=== PATIENT | female | born 1990 | race Caucasian/White ===

== ENCOUNTER 2018-05-11 07:43 | Inpatient (IN) | payer OTHER ==
[~2018-05-11] VITALS: Ht 152.4 cm; Wt 81.0 kg
[~2018-05-11 07:43] MED LIST: ACYC400 PO; ACYC800 PO; ACYCLOVIR PO; AMOCLA500 PO; AMOX875 PO; BCP; BCP'S; CEPH500 PO; CODGUAEL PO; IBUP600 PO; IBUP800 PO; LIDO2L MM; ONDA4ODT MM; SULTRIDS PO; TRAM50 PO; Veetids 500500 MG PO; [UNRECOGNIZED DRUG - REMARK]
[2018-05-11 08:28] LABS: BASOPHILS ABSOLUTE AUTO 0.05 K/mm3 (0.00-0.23); BASOPHILS PERCENT AUTO 0 % (0-2); EOSINOPHILS ABSOLUTE AUTO 0.07 K/mm3 (0.00-0.68); EOSINOPHILS PERCENT AUTO 1 % (0-6); Hematocrit 34.3 % (33.0-51.0); Hemoglobin 11.3 g/dL (11.5-16.0); IMMATURE GRAN ABSOLUTE AUTO 0.12 K/mm3 (0.00-0.10); IMMATURE GRAN PERCENT AUTO 1 % (0-1); LYMPHOCYTES ABSOLUTE AUTO 3.16 K/mm3 (0.84-5.20); LYMPHOCYTES PERCENT AUTO 22 % (21-46); MONOCYTES ABSOLUTE AUTO 1.02 K/mm3 (0.16-1.47); MONOCYTES PERCENT AUTO 7 % (4-13); Mean Corpuscular HGB 27.2 pg (26.0-34.0); Mean Corpuscular HGB Conc 32.9 g/dL (31.5-36.5); Mean Corpuscular Volume 83 fL (80-100); Mean Platelet Volume 10.8 fL (9.1-12.4); NEUTROPHILS ABSOLUTE AUTO 9.81 K/mm3 (1.96-9.15); NEUTROPHILS PERCENT AUTO 69 % (41-73); Platelet Count 269 K/mm3 (150-400); RDW Coefficient Variation 14.2 % (11.7-14.2); RDW Standard Deviation 42.1 fL (35.1-46.3); Red Blood Cell Count 4.15 M/mm3 (3.80-5.20); White Blood Cell Count 14.23 K/mm3 (4.00-11.30)
[2018-05-12 05:53] LABS: Hemoglobin 10.1 g/dL (11.5-16.0); Mean Corpuscular HGB 26.9 pg (26.0-34.0); Mean Corpuscular HGB Conc 32.6 g/dL (31.5-36.5); Mean Corpuscular Volume 83 fL (80-100); Mean Platelet Volume 9.9 fL (9.1-12.4); Platelet Count 243 K/mm3 (150-400); RDW Coefficient Variation 14.3 % (11.7-14.2); RDW Standard Deviation 42.5 fL (35.1-46.3); Red Blood Cell Count 3.75 M/mm3 (3.80-5.20); White Blood Cell Count 18.25 K/mm3 (4.00-11.30)
[2018-05-12] MEDS ORDERED: Percocet 5-3251 EACH PO (14:07)
[2018-05-12] MEDS ORDERED: IBUP800 PO (14:07)
== END 2018-05-12 16:42 | disposition home or self-care (01) | DRG 807 ==
LOC: OBS 07:43 → BC 07:46 → OBS 07:53 → BC 07:54
PROVIDERS: Nurse Practitioner Obstetrics & Gynecology
PROC: 10E0XZZ Delivery of Products of Conception, External Approach (ICD-10-PCS; principal; 2018-05-11)
PROC: 0HQ9XZZ Repair Perineum Skin, External Approach (ICD-10-PCS; 2018-05-11)
PROC: 3E0R3BZ Introduction of Anesthetic Agent into Spinal Canal, Percutaneous Approach (ICD-10-PCS; 2018-05-11)
PROC: 3E0234Z Introduction of Serum, Toxoid and Vaccine into Muscle, Percutaneous Approach (ICD-10-PCS; 2018-05-12)
DX: O70.0 First degree perineal laceration during delivery (principal); Z37.0 Single live birth; Z3A.40 40 weeks gestation of pregnancy; Z23 Encounter for immunization
CPT/HCPCS: 36415; 85025; 85027; 90686; J1885; J2001; J2210; J2405; J2590; J3010; J7120

== ENCOUNTER 2018-05-31 11:07 | Day surgery (SDC) | payer OTHER ==
[2018-05-30 16:30] LABS: Hematocrit 37.5 % (33.0-51.0); Mean Corpuscular HGB 27.2 pg (26.0-34.0); Mean Corpuscular Volume 85 fL (80-100); Mean Platelet Volume 10.2 fL (9.1-12.4); Platelet Count 335 K/mm3 (150-400); RDW Coefficient Variation 14.3 % (11.7-14.2); RDW Standard Deviation 44.9 fL (35.1-46.3); Red Blood Cell Count 4.41 M/mm3 (3.80-5.20); White Blood Cell Count 7.48 K/mm3 (4.00-11.30)
[~2018-05-31 11:07] MED LIST changes: +Percocet 5-3251 EACH PO
--- NOTE | 2018-05-31 11:51 | NUR ---
1120 Ambulatory in Day Surgery History, Chart, Medications and Allergies reviewed before start of procedure.Lungs clear T/O to Auscultation. Patient confirms NPO status and agrees with scheduled surgery. Pre-Op teaching done. Pt verbalizes understanding.
--- NOTE | 2018-05-31 13:04 | NUR ---
[facility]18 [facility] BY DR PERSON AT 1250.
--- NOTE | 2018-05-31 15:24 | NUR ---
PATIENT HAMZAH PAD CHECKED WITH KACIE KOCH ON TRANSFER. MODERATE AMOUNT OF S/S DRAINAGE ON HAMZAH PAD. Discharge instructions reviewed with patient. Patient verbalizes understanding. Copy given to patient to take home. Patient States Post-Procedure ride home has been arranged. Discharged via wheelchair to private car for ride home. HAMZAH PAD CHANGED BY PATIENT BEFORE GOING HOME. NO FURTHER BLEEDING.
== END 2018-05-31 15:24 | disposition home or self-care (01) ==
LOC: ORSCMMR 11:07 → SURS 11:07 → ORD 11:07 → SURS 11:10 → ORD 15:24
PROVIDERS: Obstetrics & Gynecology
PROC: 10D07Z8 Extraction of Products of Conception, Other, Via Natural or Artificial Opening (ICD-10-PCS; principal; 2018-05-31 12:00)
DX: O72.2 Delayed and secondary postpartum hemorrhage (principal); N71.1 Chronic inflammatory disease of uterus
CPT/HCPCS: 36415; 84702; 85027; 86850; 86900; 86901; 88305; J0690; J1100; J1885; J2210; J2250; J2405; J3010; J7120

== ENCOUNTER 2021-09-20 15:32 | Day surgery (SDC) | payer OTHER ==
[~2021-09-20] VITALS: Ht 144.8 cm; Wt 83.1 kg
--- NOTE | 2021-09-20 16:13 | NUR ---
History, Chart, Medications and Allergies reviewed before start of procedure. Lungs clear T/O to Auscultation. Patient confirms NPO status and agrees with scheduled surgery. Pre-Op teaching done. Pt verbalizes understanding. Patient States Post-Procedure ride home has been arranged.
[2021-09-20 16:47] LABS: BASOPHILS ABSOLUTE AUTO 0.03 K/mm3 (0.00-0.23); BASOPHILS PERCENT AUTO 0 % (0-2); EOSINOPHILS PERCENT AUTO 1 % (0-6); Hematocrit 36.7 % (33.0-51.0); Hemoglobin 12.3 g/dL (11.5-16.0); IMMATURE GRAN ABSOLUTE AUTO 0.01 K/mm3 (0.00-0.10); IMMATURE GRAN PERCENT AUTO 0 % (0-1); LYMPHOCYTES ABSOLUTE AUTO 2.16 K/mm3 (0.84-5.20); LYMPHOCYTES PERCENT AUTO 25 % (21-46); MONOCYTES ABSOLUTE AUTO 0.66 K/mm3 (0.16-1.47); MONOCYTES PERCENT AUTO 8 % (4-13); Mean Corpuscular HGB 28.7 pg (26.0-34.0); Mean Corpuscular HGB Conc 33.5 g/dL (31.5-36.5); Mean Corpuscular Volume 86 fL (80-100); Mean Platelet Volume 10.1 fL (9.1-12.4); NEUTROPHILS ABSOLUTE AUTO 5.85 K/mm3 (1.96-9.15); NEUTROPHILS PERCENT AUTO 67 % (41-73); Platelet Count 274 K/mm3 (150-400); RDW Coefficient Variation 12.6 % (11.7-14.2); RDW Standard Deviation 39.1 fL (35.1-46.3); Red Blood Cell Count 4.29 M/mm3 (3.80-5.20); White Blood Cell Count 8.81 K/mm3 (4.00-11.30)
--- NOTE | 2021-09-21 07:03 | NUR ---
LATE ENTRY, PT WAS GIVEN PO FOOD AND FLUIDS TO EAT PRIOR TO PAIN MEDICATIONS GIVEN. PT TOLERATED WELL. IV DC'D INTACT. PT WITH SCANT VAGINAL BLEEDING A THIS TIME. PERIPAD PROVIDED. REVIEWED DISCHARGE INSTRUCTIONS WITH PT. PT RX WAS GIVEN TO HER PRIOR TO PT GOING TO SURGERY BY DR. CHEN. PT HOME WITH HER AND DISCHARGED VIA WHEELCHAIR. NO ACUTE DISTRESS AT THIS TIME.
== END 2021-09-20 23:29 | disposition home or self-care (01) ==
LOC: ORD 15:32
PROVIDERS: Obstetrics & Gynecology
PROC: 10A07ZZ Abortion of Products of Conception, Via Natural or Artificial Opening (ICD-10-PCS; principal; 2021-09-20 15:30)
DX: O03.4 Incomplete spontaneous abortion without complication (principal); J45.909 Unspecified asthma, uncomplicated
CPT/HCPCS: 85025; A9270; J0690

== ENCOUNTER 2022-08-21 20:04 | Inpatient (IN) | payer OTHER ==
[~2022-08-21] VITALS: Ht 152.4 cm; Wt 84.1 kg
[2022-08-21] MEDS ORDERED: PRENATAL TABLE1 EAC2 PO (20:33)
[2022-08-21] MEDS ORDERED: LABE100 PO (20:33)
[2022-08-21] MEDS ORDERED: ACYC400 PO (20:33)
[2022-08-21 20:34] LABS: BASOPHILS ABSOLUTE AUTO 0.04 K/mm3 (0.00-0.23); BASOPHILS PERCENT AUTO 0 % (0-2); EOSINOPHILS ABSOLUTE AUTO 0.04 K/mm3 (0.00-0.68); EOSINOPHILS PERCENT AUTO 0 % (0-6); Hematocrit 31.2 % (33.0-51.0); Hemoglobin 10.5 g/dL (11.5-16.0); IMMATURE GRAN ABSOLUTE AUTO 0.09 K/mm3 (0.00-0.10); IMMATURE GRAN PERCENT AUTO 1 % (0-1); LYMPHOCYTES ABSOLUTE AUTO 2.21 K/mm3 (0.84-5.20); LYMPHOCYTES PERCENT AUTO 20 % (21-46); MONOCYTES ABSOLUTE AUTO 0.89 K/mm3 (0.16-1.47); MONOCYTES PERCENT AUTO 8 % (4-13); Mean Corpuscular HGB 27.8 pg (26.0-34.0); Mean Corpuscular HGB Conc 33.7 g/dL (31.5-36.5); Mean Corpuscular Volume 83 fL (80-100); Mean Platelet Volume 9.5 fL (9.1-12.4); NEUTROPHILS ABSOLUTE AUTO 7.63 K/mm3 (1.96-9.15); NEUTROPHILS PERCENT AUTO 70 % (41-73); Platelet Count 290 K/mm3 (150-400); RDW Standard Deviation 41.9 fL (35.1-46.3); Red Blood Cell Count 3.78 M/mm3 (3.80-5.20)
--- NOTE | 2022-08-22 15:30 | NUR ---
AFTER REPEATEDLY REMOVING BP CUFF, PT DECLINING FURTHER BP CHECKS AT THIS TIME SHE BELIVES IT IS INTERFERING WITH .
[2022-08-23 07:46] LABS: Hematocrit 28.4 % (33.0-51.0); Hemoglobin 9.7 g/dL (11.5-16.0); Mean Corpuscular HGB 28.1 pg (26.0-34.0); Mean Corpuscular HGB Conc 34.2 g/dL (31.5-36.5); Mean Corpuscular Volume 82 fL (80-100); Mean Platelet Volume 9.6 fL (9.1-12.4); Platelet Count 223 K/mm3 (150-400); RDW Coefficient Variation 14.1 % (11.7-14.2); RDW Standard Deviation 41.6 fL (35.1-46.3); Red Blood Cell Count 3.45 M/mm3 (3.80-5.20); White Blood Cell Count 13.07 K/mm3 (4.00-11.30)
[2022-08-23] MEDS ORDERED: IBUP800 PO (14:12)
[2022-08-23] MEDS ORDERED: ACET500 PO (14:12)
--- NOTE | 2022-08-23 14:25 | NUR ---
DISCHARGE MOTHER CARING FOR SELF AND BABY INDEPENDANTLY. VSS. AFEBRILE. VERBALIZES UNDERSTANDING OF DC INSTRUCTIONS AND FOLLOW UP APPOINTMENTS. LOCHIA SCANT. DC HOME STABLE.
== END 2022-08-23 15:00 | disposition home or self-care (01) | DRG 807 ==
LOC: OBS 20:04 → BC 20:11
PROVIDERS: ADMIT Nurse Practitioner Obstetrics & Gynecology
PROC: 10E0XZZ Delivery of Products of Conception, External Approach (ICD-10-PCS; principal; 2022-08-22)
PROC: 3E0R3BZ Introduction of Anesthetic Agent into Spinal Canal, Percutaneous Approach (ICD-10-PCS; 2022-08-22)
PROC: 00HU33Z Insertion of Infusion Device into Spinal Canal, Percutaneous Approach (ICD-10-PCS; 2022-08-22)
PROC: 10907ZC Drainage of Amniotic Fluid, Therapeutic from Products of Conception, Via Natural or Artificial Opening (ICD-10-PCS; 2022-08-22)
DX: O10.92 Unspecified pre-existing hypertension complicating childbirth (principal); Z37.0 Single live birth; Z3A.38 38 weeks gestation of pregnancy
CPT/HCPCS: 36415; 51702; 85025; 85027; 86850; 86900; 86901; 86923; A9270; J1885; J2210; J2590; J7120

== ENCOUNTER 2022-11-23 09:01 | Day surgery (SDC) | payer OTHER ==
[~2022-11-23] VITALS: Ht 154.9 cm; Wt 74.6 kg
[~2022-11-23 09:01] MED LIST changes: +ACET500 PO; +LABE100 PO; +PRENATAL TABLE1 EAC2 PO
--- NOTE | 2022-11-23 11:14 | NUR ---
11/23/22 1114 JONATAN HAAS ABD AREA PREPD W DURAPREP BY ORSC.JAR. END NOTE ORSC.RDS
[2022-11-23 12:42] VITALS: BP 129/83
--- NOTE | 2022-11-23 13:16 | NUR ---
11/23/22 1316 Jr Maurice iv removed intact. SITE WNL.
== END 2022-11-23 13:15 | disposition home or self-care (01) ==
LOC: ORSCSDS 09:01 → ORD 12-09 07:30
PROVIDERS: Obstetrics & Gynecology
PROC: 0DNW4ZZ Release Peritoneum, Percutaneous Endoscopic Approach (ICD-10-PCS; principal; 2022-11-23 10:15)
PROC: 0UT74ZZ Resection of Bilateral Fallopian Tubes, Percutaneous Endoscopic Approach (ICD-10-PCS; principal; 2022-11-23 10:15)
DX: Z30.2 Encounter for sterilization (principal); N80.329 Endometriosis of the posterior cul-de-sac, unspecified depth; K66.0 Peritoneal adhesions (postprocedural) (postinfection); K21.9 Gastro-esophageal reflux disease without esophagitis; F32.A Depression, unspecified; Z79.899 Other long term (current) drug therapy
CPT/HCPCS: 88302; A9270; J0171; J0690; J1100; J1885; J2250; J2405; J2704; J2795; J3010; J7120